=== PATIENT | male | born 1975 | race Two or more races ===

== ENCOUNTER 2017-05-20 12:43 | Inpatient (IN) | payer OTHER ==
[2017-05-20 15:08] VITALS: BMI 33.0
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
[2017-05-20] MEDS ORDERED: LOPERAMIDE HCL 2 MG CAPSULE PO PRN (17:46)
[2017-05-20] MEDS ORDERED: ACETAMINOPHEN 325 MG TABLET (FP) PO PRN (17:46)
[2017-05-20] MEDS ORDERED: MAGNESIUM CITRATE 300 ML BOTTLE PO PRN (17:46)
[2017-05-20] MEDS ORDERED: chlordiazePOXIDE HCL 25 MG CAPSULE PO PRN (17:46)
[2017-05-20] MEDS ORDERED: MAGNESIUM HYDROX 2400MG/30ML ORAL SUSPENSION 30 ML CUP PO PRN (17:46)
[2017-05-20] MEDS ORDERED: MAG HYDROX/AL HYDROX/SIMETH 30 ML UNIT-DOSE CUP PO PRN (17:46)
[2017-05-20] MEDS ORDERED: P-EPHED 60MG/TRIPROLIDI 2.5MG TABLET PO PRN (17:46)
[2017-05-20] MEDS ORDERED: MENTHOL/PHENOL 1 EACH UD MM PRN (17:46)
[2017-05-20] MEDS ORDERED: guaiFENesin/D-METHORPHAN HB 10 ML UNIT-DOSE CUPS PO PRN (17:46)
[2017-05-20] MEDS ORDERED: NICOTINE POLACRILEX 2 MG GUM BUC PRN (17:46)
[2017-05-20] MEDS ORDERED: ALBUTEROL SO4 18 GM HFA INHALER IH PRN (17:51)
[2017-05-20] MEDS ORDERED: ALBUTEROL SO4 0.083% IH SOL 2.5 MG/3 ML VIAL.NEB. NEB PRN (17:52)
[2017-05-20] MEDS: AMOX TR/POT CLAV 875MG/125MG TABLETS (FP) PO SCH (19:00)
[2017-05-20] MEDS: chlordiazePOXIDE HCL 25 MG CAPSULE PO SCH (22:22)
[2017-05-20] MEDS: THIAMINE HCL 100 MG TABLET (FP) PO SCH (22:22)
[2017-05-20] MEDS: RANITIDINE HCL 150 MG TABLET (FP) PO SCH (22:22)
[2017-05-20] MEDS: CHLORHEXIDINE GLUCONATE 0.12% 15ML CUP PO SCH (22:23)
[2017-05-20 23:29] LABS: URINE APPEARANCE SLCLOUDY; URINE BILIRUBIN NEGATIVE (NEGATIVE); URINE BLOOD NEGATIVE (NEGATIVE); URINE COLOR DKYELLOW; URINE GLUCOSE (UA) NEGATIVE (NEGATIVE); URINE KETONE NEGATIVE (NEGATIVE); URINE LEUK ESTERASE NEGATIVE (NEGATIVE); URINE NITRITE NEGATIVE (NEGATIVE); URINE PROTEIN NEGATIVE (NEGATIVE)
[2017-05-21] MEDS: chlordiazePOXIDE HCL 25 MG CAPSULE PO SCH ×4 (05:39→22:14)
[2017-05-21] MEDS: CHLORHEXIDINE GLUCONATE 0.12% 15ML CUP PO SCH ×3 (05:39→22:16)
[2017-05-21] MEDS: AMOX TR/POT CLAV 875MG/125MG TABLETS (FP) PO SCH ×2 (06:50→18:11)
[2017-05-21] MEDS: PRENATAL VITAMINS W/ FOLIC ACID TABLET (FP) PO SCH (10:14)
[2017-05-21] MEDS: RANITIDINE HCL 150 MG TABLET (FP) PO SCH ×2 (10:14→22:14)
[2017-05-21] MEDS: NICOTINE 14 MG/24 HOURS TOPICAL PATCH TD SCH (10:15)
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
[2017-05-21 10:45] LABS: MCHC 33.4 g/dl (32.0-35.9); PLATELET COUNT 207 K/MM3 (134-434); WHITE BLOOD COUNT 6.2 K/mm3 (4.0-10.0)
[2017-05-21 11:06] LABS: ALBUMIN 3.2 g/dl (3.4-5.0); ANION GAP 6 (8-16); BILIRUBIN,TOTAL 0.7 mg/dL (0.2-1.0); CALCIUM 8.2 mg/dL (8.5-10.1); CO2 28 mmol/L (21-32); GLUCOSE,RANDOM 78 mg/dL (74-106); SGOT/AST 57 U/L (15-37); SGPT/ALT 88 U/L (12-78); TOT PROT 6.4 g/dl (6.4-8.2)
[2017-05-21 11:14] LABS: ALK PHOS 106 U/L (45-117); THYROID STIMULATING HORMONE 6.65 uIU/ml (0.358-3.74)
[2017-05-21 11:48] LABS: HIV 1 & 2 AB NEGATIVE; HIV 1 AGp24 NEGATIVE
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
--- NOTE | 2017-05-21 13:04 | EKG ---
Test Reason : Blood Pressure : / mmHG Vent. Rate : 077 BPM Atrial Rate : 077 BPM P-R Int : 138 ms QRS Dur : 072 ms QT Int : 370 ms P-R-T Axes : 008 025 023 degrees QTc Int : 418 ms NORMAL SINUS RHYTHM NORMAL ECG NO PREVIOUS ECGS AVAILABLE Confirmed by JORGE SWEENEY MD ([id number]) on 05/21/2017 1:03:59 PM Referred By: Confirmed By:JORGE SWEENEY MD
[2017-05-21 18:25] LABS: URINE LEUK ESTERASE Negative (NEGATIVE)
[2017-05-21] MEDS: THIAMINE HCL 100 MG TABLET (FP) PO SCH (22:14)
[2017-05-21] MEDS: ZOLPIDEM TARTRATE 10 MG TABLET (PARK CARE ONLY) PO PRN (22:14)
[2017-05-22] MEDS: chlordiazePOXIDE HCL 25 MG CAPSULE PO SCH ×3 (05:46→17:04)
[2017-05-22] MEDS: AMOX TR/POT CLAV 875MG/125MG TABLETS (FP) PO SCH ×2 (05:46→17:04)
[2017-05-22] MEDS: CHLORHEXIDINE GLUCONATE 0.12% 15ML CUP PO SCH ×3 (05:47→22:21)
[2017-05-22] MEDS: NICOTINE 14 MG/24 HOURS TOPICAL PATCH TD SCH (10:15)
[2017-05-22] MEDS: PRENATAL VITAMINS W/ FOLIC ACID TABLET (FP) PO SCH (10:15)
[2017-05-22] MEDS: RANITIDINE HCL 150 MG TABLET (FP) PO SCH ×2 (10:15→22:21)
--- NOTE | 2017-05-22 11:20 | PN ---
[facility] CIWA - CIWA Score Nausea/Vomitin-No Nausea/No Vomiting Muscle Tremors: 4-Moderate,w/Arms Extend Anxiety: 3 Agitation: 4-Moderately Restless Paroxysmal Sweats: 1-Minimal Palms Moist Orientation: 0-Oriented Tacttile Disturbances: 3-Moderate Itch/Numb/Burn Auditory Disturbances: 0-None Visual Disturbances: 0-None Headache: 0-None Present CIWA-Ar Total Score: 15 S Progress Note (SOAP) Subjective: SLIGHT ANXIETY,SWEATS,NAD. Objective: 05/22/17 11:19 Vital Signs Temperature 96.8 F L 05/22/17 09:10 Pulse Rate 113 H 05/22/17 09:10 Respiratory Rate 20 05/22/17 09:10 Blood Pressure 134/79 05/22/17 09:10 O2 Sat by Pulse Oximetry (%) Laboratory Last Values WBC 6.2 K/mm3 (4.0-10.0) 05/21/17 07:54 RBC 4.65 M/mm3 (4.00-5.60) 05/21/17 07:54 Hgb 15.8 GM/dL (11.7-16.9) 05/21/17 07:54 Hct 47.5 % (35.4-49) 05/21/17 07:54 MCV 102.0 fl (80-96) H 05/21/17 07:54 MCH 34.0 pg (25.7-33.7) H 05/21/17 07:54 MCHC 33.4 g/dl (32.0-35.9) 05/21/17 07:54 RDW 13.0 % (11.9-15.9) 05/21/17 07:54 Plt Count 207 K/MM3 (134-434) 05/21/17 07:54 MPV 8.0 fl (7.5-11.1) 05/21/17 07:54 Sodium 139 mmol/L (136-145) 05/21/17 07:54 Potassium 3.7 mmol/L (3.5-5.1) 05/21/17 07:54 Chloride 105 mmol/L (98-107) 05/21/17 07:54 Carbon Dioxide 28 mmol/L (21-32) 05/21/17 07:54 Anion Gap 6 (8-16) L 05/21/17 07:54 BUN 16 mg/dL (7-18) 05/21/17 07:54 Creatinine 1.0 mg/dL (0.7-1.3) 05/21/17 07:54 Creat Clearance w eGFR > 60 (>60) 05/21/17 07:54 Random Glucose 78 mg/dL (74-106) 05/21/17 07:54 Calcium 8.2 mg/dL (8.5-10.1) L 05/21/17 07:54 Total Bilirubin 0.7 mg/dL (0.2-1.0) 05/21/17 07:54 AST 57 U/L (15-37) H 05/21/17 07:54 ALT 88 U/L (12-78) H 05/21/17 07:54 Alkaline Phosphatase 106 U/L (45-117) 05/21/17 07:54 Total Protein 6.4 g/dl (6.4-8.2) 05/21/17 07:54 Albumin 3.2 g/dl (3.4-5.0) L 05/21/17 07:54 TSH 6.65 uIU/ml (0.358-3.74) H 05/21/17 07:54 Urine Color Dkyellow 05/20/17 21:25 Urine Appearance Slcloudy 05/20/17 21:25 Urine pH 6.0 (5.0-8.0) 05/20/17 21:25 Ur Specific [place] 1.026 (1.001-1.035) 05/20/17 21:25 Urine Protein Negative (NEGATIVE) 05/20/17 21:25 Urine Glucose (UA) Negative (NEGATIVE) 05/20/17 21:25 Urine Ketones Negative (NEGATIVE) 05/20/17 21:25 Urine Blood Negative (NEGATIVE) 05/20/17 21:25 Urine Nitrite Negative (NEGATIVE) 05/20/17 21:25 Urine Bilirubin Negative (NEGATIVE) 05/20/17 21:25 Urine Urobilinogen 2.0 mg/dL (0.2-1.0) 05/20/17 21:25 Ur Leukocyte Esterase Negative (NEGATIVE) 05/20/17 21:25 RPR Titer Nonreactive (NONREACTIVE) 05/21/17 07:54 HIV 1&2 Antibody Screen Negative 05/21/17 07:54 HIV P24 Antigen Negative 05/21/17 07:54 Assessment: 05/22/17 11:20 WITHDRAWAL SX Plan: CONTINUE DETOX
[2017-05-22] MEDS: ZOLPIDEM TARTRATE 10 MG TABLET (PARK CARE ONLY) PO PRN (22:21)
[2017-05-22] MEDS: chlordiazePOXIDE 5 MG CAPSULE PO SCH (22:21)
[2017-05-22] MEDS: THIAMINE HCL 100 MG TABLET (FP) PO SCH (22:21)
[2017-05-23] MEDS: chlordiazePOXIDE 5 MG CAPSULE PO SCH (05:23)
[2017-05-23] MEDS: AMOX TR/POT CLAV 875MG/125MG TABLETS (FP) PO SCH (05:24)
[2017-05-23] MEDS: CHLORHEXIDINE GLUCONATE 0.12% 15ML CUP PO SCH (06:24)
[2017-05-23 09:16] VITALS: BP 136/82; PULSE 130; TEMP 98.2
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
[2017-05-23] MEDS ORDERED: chlordiazePOXIDE HCL 10 MG CAPSULE PO SCH (23:00)
== END 2017-05-23 09:19 | disposition left against medical advice (07) | DRG 770 ==
LOC: YASAS 12:43 → Y3N 18:10
PROVIDERS: ADMIT Internal Medicine; ATTEND Internal Medicine
PROC: HZ2ZZZZ Detoxification Services for Substance Abuse Treatment (ICD-10-PCS; principal; 2017-05-20)
DX: F10.230 Alcohol dependence with withdrawal, uncomplicated (principal); F17.210 Nicotine dependence, cigarettes, uncomplicated; E05.90 Thyrotoxicosis, unspecified without thyrotoxic crisis or storm; G47.00 Insomnia, unspecified; J45.42 Moderate persistent asthma with status asthmaticus; K21.9 Gastro-esophageal reflux disease without esophagitis; B18.2 Chronic viral hepatitis C; S05.11XS Contusion of eyeball and orbital tissues, right eye, sequela; Y04.0XXS Assault by unarmed brawl or fight, sequela; Z59.0 Homelessness
CPT/HCPCS: 36415; 80053; 81003; 84443; 85027; 86593; 87389; 93005; 93010